=== PATIENT | male | born 1955 | race Two or more races ===

== ENCOUNTER 2025-03-28 05:51 | Day surgery (SDC) | payer MEDICARE, OTHER ==
[~2025-03-28] VITALS: Ht 172.7 cm; Wt 80.7 kg
[2025-03-28 06:24] VITALS: BP 143/77; TEMP 98.1; O2SAT 92
[2025-03-28] MEDS ORDERED: CELLULOSE,OXIDIZED 1 EACH EACH MC ONE (06:53)
[2025-03-28] MEDS ORDERED: HEMOSTATIC MATRIX 8 ML 1 EACH PAD MC ONE (06:53)
[2025-03-28] MEDS ORDERED: CELLULOSE,OXIDIZED 1 PKT EACH MC ONE (06:53)
[2025-03-28] MEDS ORDERED: ANESTHESIA TRAY IN PYXIS 1 EA TRAY MC ONE (06:53)
[2025-03-28] MEDS ORDERED: ROPIVACAINE HCL 0.5% 5 MG/ML 30ML VIAL ONE ×2 (06:53→07:12)
[2025-03-28] MEDS ORDERED: CELLULOSE,OXIDIZED 1 EA PACK MC ONE (06:53)
[2025-03-28] MEDS ORDERED: LIDOCAINE HCL/MPF 1% 30 ML VIAL IJ ONE (06:53)
[2025-03-28] MEDS ORDERED: MIDAZOLAM HCL 2 MG/2ML VIAL ONE ×2 (07:12→08:33)
[2025-03-28] MEDS ORDERED: FENTANYL PF 100MCG/2ML AMPUL ONE ×2 (07:12→08:33)
[2025-03-28] MEDS ORDERED: LIDOCAINE 2% 50 ML MDV IJ ONE (07:13)
[2025-03-28] MEDS ORDERED: ACETAMINOPHEN 325 MG TABLET ONE (09:26)
[2025-03-28 09:30] VITALS: BP 158/85; TEMP 97.5; O2SAT 94
[2025-03-28] MEDS: ACETAMINOPHEN 325 MG TABLET PO PRN (09:34)
== END 2025-03-28 16:00 | disposition home or self-care (01) ==
LOC: DS 05:51 → UNDOADMIN 05:52 → MED 05:52 → UNDODISIN 12:30 → DS 16:00
PROVIDERS: ATTEND Surgery Vascular Surgery
DX: T82.511A Breakdown (mechanical) of surgically created arteriovenous shunt, initial encounter (principal); N18.6 End stage renal disease; F41.9 Anxiety disorder, unspecified; G47.30 Sleep apnea, unspecified; Z79.899 Other long term (current) drug therapy; Z98.890 Other specified postprocedural states; Y83.2 Surgical operation with anastomosis, bypass or graft as the cause of abnormal reaction of the patient, or of later complication, without mention of misadventure at the time of the procedure; Y92.9 Unspecified place or not applicable
CPT/HCPCS: 36832; 84132; 36415; 87081; J0690; J2704; J3010 ×2; J3490 ×4; J1644; J7040; J2250 ×2; J2795; A4565; A6209; G0378